=== PATIENT | female | born 1950 | race Caucasian/White ===

== ENCOUNTER 2018-04-06 16:52 | Emergency (ER) | payer OTHER ==
[2018-04-06] MEDS: HYDROCODONE/APAP (5/325) TAB PO (17:36)
[2018-04-06] MEDS: IBUPROFEN 600 MG TAB PO (17:36)
== END 2018-04-06 19:00 | disposition home or self-care (01) ==
LOC: FTE 16:52
DX: S52.501A Unspecified fracture of the lower end of right radius, initial encounter for closed fracture (principal); W01.0XXA Fall on same level from slipping, tripping and stumbling without subsequent striking against object, initial encounter; Y92.009 Unspecified place in unspecified non-institutional (private) residence as the place of occurrence of the external cause
CPT/HCPCS: 29125; 73110-RT; 99283-25